=== PATIENT | female | born 1950 | race Caucasian/White ===

== ENCOUNTER 2018-07-14 18:26 | Emergency (ER) | payer OTHER ==
--- NOTE | 2018-07-14 18:44 | EDPHY ---
H & P Stated Complaint: abdominal pain, hernia /nerve pain Time Seen by Provider: 07/14/18 18:41 HPI/ROS: CHIEF COMPLAINT: Sharp epigastric pain HISTORY OF PRESENT ILLNESS: The patient presents the ED after she has developed intermittent sharp neuropathic epigastric pain. The patient has a history of shingles and has had similar symptoms in the past. The patient contacted her primary care provider who is going to treat her empirically however based upon further characterization of her symptoms was concerned about the possibility of a sports hernia. The patient was referred to the ED for further evaluation. She denies any vomiting, hematemesis or melena. She has no palpable pain. She reports that she gets sharp stabbing paroxysms of pain. She reports that she was referred to the emergency department for a CT scan for further evaluation. REVIEW OF SYSTEMS: A comprehensive 10 point review of systems is otherwise negative aside from elements mentioned in the history of present illness. Source: Patient - Personal History Current Tetanus Diphtheria and Acellular Pertussis (TDAP): Yes - Medical/Surgical History Hx Asthma: No Hx Chronic Respiratory Disease: No Hx Diabetes: No Hx Cardiac Disease: No Hx Renal Disease: No Hx Cirrhosis: No Hx Alcoholism: No Hx HIV/AIDS: No Hx Splenectomy or Spleen Trauma: No Other PMH: Right sided abd sx (pt not sure what was removed) 1989; - Social History Smoking Status: Never smoked - Physical Exam Exam: General Appearance: Alert, no distress Eyes: Pupils equal and round no pallor or injection ENT, Mouth: Mucous membranes moist Respiratory: There are no retractions, lungs are clear to auscultation Cardiovascular: Regular rate and rhythm Gastrointestinal: Abdomen is soft and nontender, no masses, bowel sounds normal Neurological: 5/5 strength noted all 4 extremities Skin: Warm and dry, no rashes Musculoskeletal: Neck is supple nontender Extremities: symmetrical, full range of motion Constitutional: Initial Vital Signs Temperature (C) 36.5 C 07/14/18 18:30 Heart Rate 51 L 07/14/18 18:30 Respiratory Rate 16 07/14/18 18:30 Blood Pressure 127/80 H 07/14/18 18:30 O2 Sat (%) 98 07/14/18 18:30 O2 Delivery Mode Room Air Allergies/Adverse Reactions: No Known Allergies Allergy (Unverified 12/16/08 19:09) Home Medications: Medication Instructions Recorded Herbals/Supplements -Info Only 1 ea PO DAILY 07/14/18 Lidocaine [Lidoderm] 1 each TP AD PRN #15 adh..patch 07/14/18 Valacyclovir HCl [Valtrex] 1,000 mg PO BID 07/14/18 Medical Decision Making ED Course/Re-evaluation: Patient presents the ED with complaints of acute sharp pain in her subxiphoid and epigastrium. The patient has a benign abdominal examination. I palpate no obvious hernia. The patient is nontoxic and well-appearing with stable vital signs. At the request of her primary care provider a CT scan of the abdomen pelvis has been ordered. CT scan of the abdomen pelvis demonstrates constipation. 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 Patient continues to have very sharp episodes of intermittent abdominal pain which she states feels like it is originating in the superficial skin. I see no obvious shingles on exam and she currently has started acyclovir. The patient will be given a lidocaine patch this evening. She will take a dose of milk of magnesia when she gets home. I reviewed the results of her workup with her primary care provider Dr. Melgar who will call her tomorrow to check how she is doing. The patient will be discharged from the emergency department. She is given a take-home pack of Percocet. Patient does have thrombocytopenia. I did relay this to her primary care provider who will follow-up. Differential Diagnosis: Differential diagnosis considered includes hernia, obstruction, constipation, zoster, neuropathic pain - Data Points Laboratory Results: Laboratory Results 07/14/18 19:40 07/14/18 07/14/18 07/14/18 19:40 19:14 18:56 WBC 2.93 10^3/uL L 10^3/uL (3.80-9.50) RBC 4.46 10^6/uL 10^6/uL (4.18-5.33) Hgb 14.1 g/dL g/dL (12.6-16.3) POC Hgb 15.3 gm/dL gm/dL (12.6-16.3) Hct 42.3 % % (38.0-47.0) POC Hct 45 % % (38-47) MCV 94.8 fL fL (81.5-99.8) MCH 31.6 pg pg (27.9-34.1) MCHC 33.3 g/dL g/dL (32.4-36.7) RDW 13.1 % % (11.5-15.2) Plt Count 62 10^3/uL L 10^3/uL (150-400) MPV 8.9 fL fL (8.7-11.7) Neut % (Auto) 39.2 % L % (39.3-74.2) Lymph % (Auto) 51.9 % H % (15.0-45.0) Spencer % (Auto) 7.2 % % (4.5-13.0) Eos % (Auto) 1.0 % % (0.6-7.6) Baso % (Auto) 0.7 % % (0.3-1.7) Nucleat RBC Rel Count 0.0 % % (0.0-0.2) Absolute Neuts (auto) 1.15 10^3/uL L 10^3/uL (1.70-6.50) Absolute Lymphs (auto) 1.52 10^3/uL 10^3/uL (1.00-3.00) Absolute Monos (auto) 0.21 10^3/uL L 10^3/uL (0.30-0.80) Absolute Eos (auto) 0.03 10^3/uL 10^3/uL (0.03-0.40) Absolute Basos (auto) 0.02 10^3/uL 10^3/uL (0.02-0.10) Absolute Nucleated RBC 0.00 10^3/uL 10^3/uL (0-0.01) Immature Gran % 0.0 % % (0.0-1.1) Immature Gran # 0.00 10^3/uL 10^3/uL (0.00-0.10) POC Sodium 138 mEq/L mEq/L (135-145) POC Potassium 3.7 mEq/L mEq/L (3.3-5.0) POC Chloride 99 mEq/L mEq/L (97-110) POC Total CO2 25 mEq/L mEq/L (22-31) POC BUN 17 mg/dL mg/dL (7-23) POC Creatinine 0.9 mg/dL mg/dL (0.6-1.0) POC Glucose 86 mg/dL mg/dL (70-100) POC Troponin I 0.01 ng/mL ng/mL (0.00-0.08) Medications Given: Discontinued Medications Morphine Sulfate (Morphine) 4 mg IVP EDNOW ONE Stop: 07/14/18 20:41 Last Admin: 07/14/18 20:54 Dose: Not Given Point of Care Test Results: Chemistry 07/14/18 07/14/18 19:14 18:56 POC Sodium 138 mEq/L mEq/L (135-145) POC Potassium 3.7 mEq/L mEq/L (3.3-5.0) POC Chloride 99 mEq/L mEq/L (97-110) POC Total CO2 25 mEq/L mEq/L (22-31) POC BUN 17 mg/dL mg/dL (7-23) POC Creatinine 0.9 mg/dL mg/dL (0.6-1.0) POC Glucose 86 mg/dL mg/dL (70-100) POC Troponin I 0.01 ng/mL ng/mL (0.00-0.08) ISTAT H&H 07/14/18 19:14 POC Hgb 15.3 gm/dL gm/dL (12.6-16.3) POC Hct 45 % % (38-47) Departure - Departure Disposition: Home, Routine, Self-Care Clinical Impression: Abdominal pain Qualifiers: Abdominal location: epigastric Qualified Code(s): R10.13 - Epigastric pain Condition: Good Instructions: Acute Abdominal Pain (ED) Additional Instructions: 1. Please take Percocet as needed for severe pain. 2. Lidocaine patch for 12 hr to see how that affects her symptoms. 3. Return to the ED for markedly worsening symptoms or other concerns. 4. Dr. Melgar will call you tomorrow afternoon to see how you were doing. Referrals: Anil Melgar MD [Primary Care Provider] - As per Instructions Prescriptions: Lidocaine [Lidoderm] 1 each TP AD PRN #15 adh..patch PRN Reason: Pain, Breakthrough
[2018-07-14] MEDS ORDERED: IOPAMIDOL (ISOVUE-300) 100 ML BTL ONE (19:37)
[2018-07-14 19:51] LABS: PLATELET COUNT 62 10^3/uL (150-400)
[2018-07-14] MEDS ORDERED: LIDOCAINE 4%/MENTHOL 1% PATCH TD ONE (20:59)
[2018-07-14] MEDS ORDERED: PATCH REMOVAL 1 EA PATCH TD SCH (21:00)
[2018-07-14] MEDS ORDERED: OXYCODONE/APAP 5/325MG PREPACK#4 BTL TAKEHOME ONE (21:05)
[2018-07-14 21:33] VITALS: BP 103/66
== END 2018-07-14 21:33 | disposition home or self-care (01) ==
DX: R10.13 Epigastric pain (principal)
CPT/HCPCS: 74177; 99285; J2270; Q9967; 82435-PO; 82565-PO; 82947-PO; 84132-PO; 84295-PO; 84484-ER; 84520-PO; 85014-ER